=== PATIENT | male | born 1995 | race Caucasian/White ===

== ENCOUNTER 2016-10-14 00:11 | Emergency (ER) | payer SELFPAY ==
[2016-10-14 00:19] VITALS: BP 142/91; PULSE 103; RESP 18; TEMP 98.2; O2SAT 95
--- NOTE | 2016-10-14 00:37 | EDPHY ---
H & P Stated Complaint: SI - Mental Health Time Seen by Provider: 10/14/16 00:20 HPI/ROS: Chief complaint: Depression and thoughts of self-harm HPI: 21-year-old male presenting with depression, anxiety, and fleeting thoughts of self-harm. He does not have a specific plan. He has had depression for about the last 3 years. He has been in counseling twice and was prescribed an SSRI but did not take it. He has had increasing stressors over the last couple of weeks. Patient is presenting tonight just because he is seeking resources for help with his feelings. He he does not feel acutely suicidal and does not have a plan of how he would harm himself. He states that these thoughts are actually more just fleeting thoughts of being dad. He denies any hallucinations. No thoughts of harming anyone else. Does not feel paranoid. No significant weight loss or weight gain. No fevers or chills. No chest pain abdominal pain nausea vomiting or any other physical complaints. Denies alcohol. Is a smoker. Does use daily marijuana. ROS: 10 point Review of Systems is negative except as noted in the HPI. Past medical history: None Medications: None Allergies: No known drug allergies Physical exam: Gen: Awake, Alert, No Distress HEENT: Nose: no rhinorrhea Eyes: PERRLA, EOMI Mouth: Moist mucosa Neck: Supple, no JVD Chest: nontender, lungs clear to auscultation Heart: S1, S2 normal, no murmur Abd: Soft, non-tender, no guarding Back: no CVA tenderness, no midline tenderness Ext: no edema, non-tender Skin: no rash Neuro: CN II-XII intact, Sensation grossly intact, Strength 5/5 in bilateral upper and lower extremities - Personal History Current Tetanus Diphtheria and Acellular Pertussis (TDAP): Yes - Medical/Surgical History Hx Asthma: No Hx Chronic Respiratory Disease: No Hx Diabetes: No Hx Cardiac Disease: No Hx Renal Disease: No Hx Cirrhosis: No Hx Alcoholism: No Hx HIV/AIDS: No Hx Splenectomy or Spleen Trauma: No Other PMH: Anxiety, Depression - Social History Smoking Status: Current every day smoker Constitutional: Initial Vital Signs Temperature (C) 36.8 C 10/14/16 00:16 Heart Rate 103 H 10/14/16 00:16 Respiratory Rate 18 10/14/16 00:16 Blood Pressure 142/91 H 10/14/16 00:16 O2 Sat (%) 95 10/14/16 00:16 O2 Delivery Mode Room Air Allergies/Adverse Reactions: No Known Allergies Allergy (Unverified 10/14/16 00:15) Home Medications: Medication Instructions Recorded NK [No Known Home Meds] 10/14/16 Medical Decision Making ED Course/Re-evaluation: 21-year-old male presenting with some anxiety and depression and fleeting thoughts of suicide. He is not currently actively suicidal. He does not have a plan. He does not have any weapons at home. He is elaina for safety with me. We have had an extensive discussion about getting him resources for his mental health. I do not feel he requires an emergent evaluation or psychiatric placement at this time. I have given resources by her both [facility] and [facility]. He would like to go home and give them a call tomorrow. He is certainly elaina for safety with me. He will return immediately for any increasing depression, anxiety, thoughts of suicide. He is not intoxicated. I think this is an appropriate decision. Departure - Departure Disposition: Home, Routine, Self-Care Clinical Impression: Depression, Anxiety Condition: Good Instructions: Depression (ED), Anxiety (ED) Additional Instructions: Follow up [facility] or [facility]. Call tomorrow to arrange consultation. Return to the emergency department immediately for increasing depression, thoughts of suicide, hallucinations, or any other concerns. Referrals: NONE *PRIMARY CARE P,. [Primary Care Provider] - As per Instructions [facility] [Outside] - As per Instructions [facility] [Outside] - As per Instructions
== END 2016-10-14 00:50 | disposition home or self-care (01) ==
DX: F41.8 Other specified anxiety disorders (principal); F17.200 Nicotine dependence, unspecified, uncomplicated

== ENCOUNTER 2018-09-18 21:21 | Emergency (ER) | payer BC ==
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
[2018-09-18 22:46] VITALS: BP 131/70
== END 2018-09-18 22:46 | disposition home or self-care (01) ==
DX: S06.0X0A Concussion without loss of consciousness, initial encounter (principal); S00.83XA Contusion of other part of head, initial encounter; Y04.8XXA Assault by other bodily force, initial encounter; Y92.9 Unspecified place or not applicable; Y93.9 Activity, unspecified; Y99.9 Unspecified external cause status